=== PATIENT | male | born 1960 ===

== ENCOUNTER → 2017-08-06 | Outpatient (CLI) | payer OTHER ==
[~2017-08-06] VITALS: Ht 175.3 cm; Wt 121.8 kg
[~2017-08-06] MED LIST: AMLO2.5T PO; AZEL137S8 NASAL; CANA100T PO; CETI-290 PO; CHOL200016 PO; EXEN2VIA SQ; FLUT16H NASAL; GABA-529 PO; INSLAN SQ; METF500T4 PO; MONT10TA21 PO; OMEP20 PO; OS500 PO; PRAV20TA4 PO; RIVA15T PO; TRAM50TA4 PO
[2017-08-06 15:02] VITALS: BP 152/87
== END | disposition home or self-care (01) ==
LOC: HBOWC 14:29
PROVIDERS: ATTEND Emergency Medicine
DX: S81.801D Unspecified open wound, right lower leg, subsequent encounter (principal); S81.802D Unspecified open wound, left lower leg, subsequent encounter; I87.2 Venous insufficiency (chronic) (peripheral); E11.319 Type 2 diabetes mellitus with unspecified diabetic retinopathy without macular edema; I89.0 Lymphedema, not elsewhere classified; I10 Essential (primary) hypertension; J45.909 Unspecified asthma, uncomplicated; Z86.718 Personal history of other venous thrombosis and embolism; Z79.01 Long term (current) use of anticoagulants; X58.XXXD Exposure to other specified factors, subsequent encounter

== ENCOUNTER → 2017-08-13 | Outpatient (CLI) | payer OTHER ==
[2017-08-13 13:55] VITALS: BP 144/81
== END | disposition home or self-care (01) ==
LOC: HBOWC 13:11
PROVIDERS: ATTEND Emergency Medicine
DX: S81.801D Unspecified open wound, right lower leg, subsequent encounter (principal); S81.802D Unspecified open wound, left lower leg, subsequent encounter; E11.319 Type 2 diabetes mellitus with unspecified diabetic retinopathy without macular edema; I10 Essential (primary) hypertension; I87.2 Venous insufficiency (chronic) (peripheral); I89.0 Lymphedema, not elsewhere classified; J45.909 Unspecified asthma, uncomplicated; Z86.718 Personal history of other venous thrombosis and embolism; Z79.01 Long term (current) use of anticoagulants; X58.XXXD Exposure to other specified factors, subsequent encounter